=== PATIENT | male | born 1985 | race Caucasian/White ===

== ENCOUNTER 2019-01-20 19:29 | Emergency (ER) | payer SELFPAY ==
[~2019-01-20] VITALS: Ht 172.7 cm; Wt 100.0 kg
[2019-01-20] MEDS ORDERED: HYDROCODONE/ACETAMINOPHEN 10-325 MG TABLET PO ONE (20:45)
[2019-01-20 21:08] VITALS: BP 131/88
== END 2019-01-20 22:04 | disposition home or self-care (01) ==
LOC: EMS 19:31
DX: S62.336A Displaced fracture of neck of fifth metacarpal bone, right hand, initial encounter for closed fracture (principal); F12.90 Cannabis use, unspecified, uncomplicated; W22.8XXA Striking against or struck by other objects, initial encounter; Y93.89 Activity, other specified; Y92.89 Other specified places as the place of occurrence of the external cause; Y99.8 Other external cause status